=== PATIENT | female | born 1985 | race Caucasian/White ===

== ENCOUNTER 2023-02-19 22:53 | Emergency (ER) | payer OTHER ==
[~2023-02-19] VITALS: Ht 160 cm; Wt 68.0 kg
[2023-02-19 22:58] VITALS: BP 147/94
--- NOTE | 2023-02-19 23:02 | NUR ---
Patient taken to bed 12
--- NOTE | 2023-02-19 23:12 | NUR ---
pt refusing to file animal bite report. CORINNE LOPEZ made aware.
[2023-02-19] MEDS ORDERED: HYDROcodone/APAP 5/325 MG 1 TAB TAB PO ONE (23:15)
[2023-02-19] MEDS ORDERED: IBUPROFEN 600 MG TAB PO ONE (23:20)
[2023-02-19] MEDS ORDERED: ACET-9529 PO (23:56)
[2023-02-19] MEDS ORDERED: IBUP-2213 PO (23:56)
[2023-02-19] MEDS ORDERED: AMOX-999 PO (23:57)
[2023-02-20] MEDS ORDERED: LIDOCAINE 1% 500 MG/ 50 ML VIAL INJ ONE (00:05)
[2023-02-20] MEDS ORDERED: LIDOCAINE MPF 1% 5 ML ONE ×2 (00:10→00:12)
--- NOTE | 2023-02-20 00:54 | NUR ---
SUGAR TONG APPLIED TO R ARM.
--- NOTE | 2023-02-20 01:06 | NUR ---
Patient discharged for Radial Fracture, Animal Bite, and Cast or Splint Care. Written and verbal after care instructions given and explained. Patient alert, oriented and verbalized understanding of instructions. Ambulatory with steady gait. All questions addressed prior to discharge. ID band removed. Patient advised to follow up with PMD. Rx of Hydrocodon-Acetaminophen 7.5-325, Augmentin, and Ibuprofen given. Patient educated on indication of medication including possible reaction and side effects. Opportunity to ask questions provided and answered.
[2023-02-20] MEDS ORDERED: HYDR-5191 PO (02:24)
== END 2023-02-20 01:06 | disposition home or self-care (01) ==
LOC: MED 22:53
DX: S52.124A Nondisplaced fracture of head of right radius, initial encounter for closed fracture (principal); W54.0XXA Bitten by dog, initial encounter; Y93.89 Activity, other specified; Y92.89 Other specified places as the place of occurrence of the external cause; Y99.8 Other external cause status
CPT/HCPCS: 12001; 73090; 90471; 90715; 99283; J2001; Q0092